=== PATIENT | male | born 1965 | race Caucasian/White ===

== ENCOUNTER 2017-03-01 16:00 | Inpatient (IN) | payer BC, OTHER ==
[~2017-03-01] VITALS: Ht 180.3 cm; Wt 127.0 kg
[2017-03-01] MEDS ORDERED: [UNRECOGNIZED DRUG - CODE] PO (17:18)
[2017-03-01] MEDS ORDERED: METO25TA56 PO (17:19)
[2017-03-01] MEDS ORDERED: HYDR25TA4 PO (17:20)
[2017-03-01] MEDS ORDERED: GLC/500 PO (17:21)
[2017-03-01] MEDS ORDERED: SITA100T3 PO (17:22)
[2017-03-01 17:39] LABS: BUN/CREATININE RATIO 15.2 (10-20); CALCIUM 8.7 mg/dl (8.5-10.1); CREATININE 0.93 mg/dl (0.60-1.40); POTASSIUM 3.5 mmol/L (3.5-5.1)
[2017-03-01 18:01] LABS: BETA-HYDROXYBUTYRATE 5.21 mg/dL (0.2-2.81)
--- NOTE | 2017-03-01 20:23 | DIAGNOSTIC IMAGING REPORT ---
CHEST ONE VIEW PORTABLE CLINICAL HISTORY: Fever, sepsis COMPARISON STUDY: No previous studies for comparison. FINDINGS: The heart is mildly enlarged. There is a suboptimal inspiration. There are increased bilateral perihilar markings. These are nonspecific and could be secondary to either a hypoventilatory study, mild pulmonary vascular congestion, or an interstitial inflammatory process. There are no pleural effusions. Clinical and radiographic follow-up is recommended.[ IMPRESSION: Nonspecific bilateral interstitial hilar opacities. Clinical and radiographic follow-up is recommended. Electronically signed by: Ignacio Montgomery M.D. 03/01/2017 8:22 PM Dictated Date/Time: 03/01/2017 8:19 PM
[2017-03-01 20:26] LABS: HEMATOCRIT 47.1 % (42-52); MEAN CELL VOLUME 88.5 fL (80-100); MEAN CORPUSCULAR HEMOGLOBIN 31.4 pg (25-34); MEAN CORPUSCULAR HGB CONC 35.5 g/dl (32-36); MEAN PLATELET VOLUME 10.3 fL (7.4-10.4); PLATELET COUNT 284 K/uL (130-400); RED BLOOD COUNT 5.32 M/uL (4.7-6.1); WHITE BLOOD COUNT 10.21 K/uL (4.8-10.8)
[2017-03-01] MEDS ORDERED: DILTIAZEM BOLUS / DRIP IV STA (20:43)
[2017-03-01 20:45] LABS: COMPLETE YES; EOSINOPHIL % 0.9 %; LYMPH ABS # 2.95 K/uL (1.2-3.4); LYMPHOCYTE % 28.9 %; NEUTROPHILS % 65.8 %
[2017-03-01] MEDS ORDERED: DILTIAZEM HCL 5 MG/ML 5 ML VIAL BOLUS/OMNI IV SCH (21:00)
[2017-03-01] MEDS ORDERED: DILTIAZEM HCL INJ 125 MG in DEXTROSE 5% 100ML IV PRN (21:00)
[2017-03-01 21:09] LABS: INR 0.9 (0.9-1.1); PROTHROMBIN TIME (PATIENT) 9.9 SECONDS (9.0-12.0)
[2017-03-01 21:41] LABS: ALKALINE PHOSPHATASE 27 U/L (45-117); ALT/SGPT 18 U/L (12-78); AST/SGOT 8 U/L (15-37); CKMB/CK RATIO 1.6 (0-3.0); THYROID STIMULATING HORMONE 0.462 uIu/ml (0.300-4.500)
[2017-03-01] MEDS ORDERED: METOPROLOL TARTRATE 50 MG TAB PO STA (22:08)
[2017-03-01] MEDS ORDERED: POTASSIUM CHLORIDE 10 MEQ TABCR PO STA (22:08)
[2017-03-01] MEDS ORDERED: MULTI-VITAMIN INFUSION INJ 10 ML, THIAMINE HCL INJ 100 MG, FoLIC ACID INJ 1 MG, POTASSI... IV ONE ×5 (22:30)
--- NOTE | 2017-03-01 22:31 | EMERGENCY ROOM VISIT NOTE ---
History Report prepared by Emyibsuly: Piotr Bolton Under the Supervision of: Dr. Dhruv Torres D.O. First contact with patient: 16:03 Chief Complaint: ALCOHOL OVERDOSE Stated Complaint: ETOH History of Present Illness The patient is a 51 year old male who presents to the Emergency Room with complaints of constant alcohol intoxication that started around 0930 this morning. The patient is accompanied by family who report that the patient has been drinking vodka since 0930. She reports that they are here for the game and are originally from [place]. Per EMS, the patient fell and they are unsure if the patient hit his head. He admits to a history of hypertension and hyperlipidemia. The patient denies vomiting. The HPI is limited due to the patient's condition. Source of History: patient, family, EMS Onset: 0930 Position: other (global) Quality: other (intoxication) Timing: constant Associated Symptoms: No vomiting Review of Systems The ROS is limited due to the patient's condition. Past Medical & Surgical Medical Problems: (1) Hyperlipidemia (2) Hypertension Family History Patient reports no known family medical history. Social History Alcohol Use: occasionally Marital Status: Housing Status: lives with family Occupation Status: employed Current/Historical Medications Scheduled Amlodipine Besylate-Olmesartan (Amlodipine/Olmesartan Med 10-40 mg), 1 TAB PO DAILY Hydrochlorothiazide (Hctz), 25 MG PO DAILY Metformin Hcl (Glucophage), 500 MG PO BID Metoprolol Tartrate (Lopressor) (Lopressor), 25 MG PO BID Sitagliptin Phosphate (Januvia), 100 MG PO DAILY Allergies Coded Allergies: No Known Allergies (Unverified , 03/01/17) Physical Exam Vital Signs Date Time Temp Pulse Resp B/P (MAP) Pulse Ox O2 Delivery O2 Flow Rate FiO2 03/01/17 22:01 110 18 104/68 95 Nasal Cannula 2.0 03/01/17 21:51 90 18 120/76 97 Nasal Cannula 2.0 03/01/17 21:41 99 18 124/75 96 Nasal Cannula 2.0 03/01/17 21:40 110 8 96 03/01/17 21:31 107/75 03/01/17 21:30 95 10 94 03/01/17 21:21 102/73 03/01/17 21:20 108 15 89 03/01/17 21:14 126 18 111/67 95 Nasal Cannula 2.0 03/01/17 21:11 104 18 113/93 95 Nasal Cannula 2.0 03/01/17 21:00 123 18 115/85 98 Nasal Cannula 2.0 03/01/17 20:30 114 18 101/75 95 Nasal Cannula 2.0 03/01/17 20:13 150 18 121/70 98 Nasal Cannula 2.0 03/01/17 20:00 110 18 98/68 95 Nasal Cannula 2.0 03/01/17 19:02 131 03/01/17 19:00 103 18 111/64 95 Nasal Cannula 2.0 03/01/17 18:39 79 109/72 95 Room Air 03/01/17 17:00 67 104/66 97 Nasal Cannula 2.0 03/01/17 16:20 87 03/01/17 16:18 93 Nasal Cannula 2.0 03/01/17 16:17 36.9 86 19 113/68 90 Room Air 03/01/17 16:12 91 Room Air Physical Exam CONSTITUTIONAL/VITAL SIGNS: Reviewed / noted above. GENERAL: Non-toxic in appearance. Somewhat drowsy. Unable to carry on a conversation. Answers basic questions appropriately. INTEGUMENTARY: Warm, dry, and [place]. HEAD: Normocephalic. EYES: without scleral icterus or trauma. ENT/OROPHARYNX: clear and moist. LYMPHADENOPATHY/NECK: Is supple without lymphadenopathy or meningismus. RESPIRATORY: Lungs clear and equal. CARDIOVASCULAR: Regular rate and rhythm. GI/ABDOMEN: Soft and nontender. No organomegaly or pulsatile mass. No rebound or guarding. Normal bowel sounds. EXTREMITIES: Warm and well perfused. BACK: No CVA tenderness. NEUROLOGICAL: Intact without focal deficits. PSYCHIATRIC: normal affect. MUSCULOSKELETAL: Normally developed with good muscle tone. Medical Decision & Procedures ER Provider Diagnostic Interpretation: X ray results and stated below per my interpretation and radiology interpretation. CHEST ONE VIEW PORTABLE CLINICAL HISTORY: Fever, sepsis COMPARISON STUDY: No previous studies for comparison. FINDINGS: The heart is mildly enlarged. There is a suboptimal inspiration. There are increased bilateral perihilar markings. These are nonspecific and could be secondary to either a hypoventilatory study, mild pulmonary vascular congestion, or an interstitial inflammatory process. There are no pleural effusions. Clinical and radiographic follow-up is recommended.[ IMPRESSION: Nonspecific bilateral interstitial hilar opacities. Clinical and radiographic follow-up is recommended. Electronically signed by: Ignacio Montgomery M.D. 03/01/2017 8:22 PM Dictated Date/Time: 03/01/2017 8:19 PM Laboratory Results 03/01/17 20:07 Red Blood Count 5.32, Mean Corpuscular Volume 88.5, Mean Corpuscular Hemoglobin 31.4, Mean Corpuscular Hemoglobin Concent 35.5, Mean Platelet Volume 10.3 03/01/17 16:17 Test 03/01/17 16:17 03/01/17 16:23 03/01/17 20:07 03/01/17 21:02 Anion Gap 17.0 mmol/L (3-11) Est Creatinine Clear Calc Drug Dose 133.1 ml/min Estimated GFR () 111.3 Estimated GFR (Non- 96.1 BUN/Creatinine Ratio 15.2 (10-20) Calcium Level 8.7 mg/dl (8.5-10.1) Beta-Hydroxybutyric Acid 5.21 mg/dL (0.2-2.81) Chemistry Specimen Hemolysis Ethyl Alcohol mg/dL 311.1 mg/dl (0-3) Prothrombin Time 9.9 SECONDS (9.0-12.0) Prothromb Time International Ratio 0.9 (0.9-1.1) Activated Partial Thromboplast Time 27.1 SECONDS (21.0-31.0) Partial Thromboplastin Ratio 1.0 White Blood Count 10.21 K/uL (4.8-10.8) Red Blood Count 5.32 M/uL (4.7-6.1) Hemoglobin 16.7 g/dL (14.0-18.0) Hematocrit 47.1 % (42-52) Mean Corpuscular Volume 88.5 fL (80-100) Mean Corpuscular Hemoglobin 31.4 pg (25-34) Mean Corpuscular Hemoglobin Concent 35.5 g/dl (32-36) Platelet Count 284 K/uL (130-400) Mean Platelet Volume 10.3 fL (7.4-10.4) RDW Standard Deviation 41.7 fL (36.4-46.3) RDW Coefficient of Variation 13.0 % (11.5-14.5) Neutrophils % (Manual) 65.8 % Lymphocytes % (Manual) 28.9 % Monocytes % (Manual) 4.4 % Eosinophils % (Manual) 0.9 % Neutrophils # (Manual) 6.72 K/uL (1.4-6.5) Total Absolute Neutrophils 6.72 K/uL (1.4-6.5) Lymphocytes # (Manual) 2.95 K/uL (1.2-3.4) Total Absolute Lymphocytes 2.95 K/uL (1.2-3.4) Monocytes # (Manual) 0.45 K/uL (0.11-0.59) Eosinophils # (Manual) 0.09 K/uL (0-0.5) Magnesium Level 1.0 mg/dl (1.8-2.4) Total Bilirubin 0.2 mg/dl (0.2-1) Direct Bilirubin < 0.1 mg/dl (0-0.2) Aspartate Amino Transf (AST/SGOT) 8 U/L (15-37) Alanine Aminotransferase (ALT/SGPT) 18 U/L (12-78) Alkaline Phosphatase 27 U/L (45-117) Total Creatine Kinase 74 U/L (39-308) Creatine Kinase MB 1.2 ng/ml (0.5-3.6) Creatine Kinase MB Ratio 1.6 (0-3.0) Troponin I 0.019 ng/ml (0-0.045) Pro-B-Type Natriuretic Peptide < 5 pg/ml (0-450) Total Protein 3.7 gm/dl (6.4-8.2) Albumin 1.8 gm/dl (3.4-5.0) Thyroid Stimulating Hormone (TSH) 0.462 uIu/ml (0.300-4.500) Laboratory results as stated above per my review. Medications Administered Medications (Trade) Dose Ordered Sig/Richie Route Start Time Stop Time Status Last Admin Dose Admin Diltiazem HCl (Cardizem Inj) 20 mg TODAY@2100 IV 03/01/17 21:00 03/01/17 23:59 03/01/17 21:13 20 MG Diltiazem HCl 125 mg/Dextrose 125 ml @ 0 mls/hr Q0M PRN IV 03/01/17 21:00 03/31/17 20:59 03/01/17 21:15 10 MLS/HR ECG Indication: altered mental status Rate (beats per minute): 106 Rhythm: atrial fibrillation (RVR) Findings: T-wave inversion (Anterior), no ectopy ED Course 160: Previous medical records were reviewed. The patient was evaluated in room B04B. A complete history and physical examination was performed. 2042: Ordered Diltiazem HCl 1 each IV. 2099: Ordered Diltiazem HCl 125 mg/Dextrose 125 @ 0 mls/hr IV, Cardizem Injection 20 mg IV. 2144: I discussed the patients case with Joel Zamora. He understands the patients condition and agrees to accept. The patient will be further evaluated. 2149: I reevaluated the patient and discussed his results. I also discussed his treatment plan, which he agrees to. The patient will be further evaluated. Medical Decision There is no evidence of other toxic ingestions, trauma, anemia, hypoglycemia, head injury or intracranial pathology, meningitis, encephalitis, acute intrathoracic or abdominal pathology or other metabolic condition. This is a 51-year-old male who presents to the ED with a chief complaint of alcohol intoxication. He was brought in by his daughter because he had fallen and they were unable to get him up. He does admit to drinking alcohol heavily today. At first he was having some difficulty communicating and answering questions but this improved during his stay. While he was here, he was placed on a monitor. He was initially a sinus rhythm but spontaneously converted into atrial fibrillation with RVR. An EKG showed A. fib with RVR with some T-wave inversions inferiorly. Chest x-ray was negative for acute disease. CBC was unremarkable. Troponin was negative. TSH was normal. The patient was started on IV fluids and then a IV Cardizem drip after a bolus for heart rate control. He was monitored closely here. He was convinced that he should stay for further inpatient evaluation and care. The patient will be seen by the hospitalist for further evaluation. Medication Reconcilliation Current Medication List: was personally reviewed by me Blood Pressure Screening Patient's blood pressure: Normal blood pressure Consults Time Called: 2144 Consulting Physician: Joel Zamora Returned Call: [phone]: I discussed the patients case with Joel Zamora. He understands the patients condition and agrees to accept. The patient will be further evaluated. Impression Primary Impression: Alcohol use with intoxication Additional Impression: Atrial fibrillation with RVR Critical Care I have personally spent 30 minutes of critical care time in the direct management of this patient. This includes bedside care, interpretation of diagnostic studies, and testing, discussion with consultants, patient, and family members, and other required patient management activities. Scribe Attestation The scribe's documentation has been prepared under my direction and personally reviewed by me in its entirety. I confirm that the note above accurately reflects all work, treatment, procedures, and medical decision making performed by me. Departure Information Dispostion Being Evaluated By Hospitalist Patient Instructions My [facility] Problem Qualifiers
[2017-03-01] MEDS ORDERED: METOPROLOL TARTRATE 25 MG TAB PO STA (22:40)
[2017-03-01] MEDS ORDERED: INSULIN GLARGINE SOLOSTAR 100 UNITS/ML 3 ML PEN SC STA (22:51)
[2017-03-01] MEDS ORDERED: INSULIN ASPART 100 UNITS/ML 3 ML PEN SC STA (22:51)
[2017-03-01] MEDS ORDERED: GLUCOSE 40% GEL 15 GM TUBE PO PRN (23:00)
[2017-03-01] MEDS ORDERED: GLUCOSE 10 TABS/TUBE PO PRN (23:00)
[2017-03-01] MEDS ORDERED: DEXTROSE 50% 50 ML SYR IV PRN (23:00)
[2017-03-01] MEDS ORDERED: GLUCAGON FOR INJ 1 MG VIAL SQ PRN (23:00)
[2017-03-01] MEDS ORDERED: NITROGLYCERIN 0.4 MG SL PER TAB CHARGE SL PRN (23:15)
[2017-03-01] MEDS ORDERED: DILTIAZEM HCL INJ 125 MG in DEXTROSE 5% 100ML 100 ML IV PRN (23:15)
[2017-03-01] MEDS ORDERED: LORAZEPAM 2 MG/ML 1 ML VIAL IV PRN (23:15)
[2017-03-01] MEDS ORDERED: ACETAMINOPHEN 325 MG TAB PO PRN (23:15)
[2017-03-01] MEDS ORDERED: OXYCODONE/ACETAMINOPHEN 5-325 TAB PO PRN (23:15)
[2017-03-01] MEDS ORDERED: ONDANSETRON INJ 2 MG/ML 2 ML VIAL IV PRN (23:15)
[2017-03-01 23:38] VITALS: BP 113/72; PULSE 76; TEMP 36.9; O2SAT 95; Ht 180.3 cm; Wt 127.0 kg
[2017-03-02] MEDS ORDERED: ENOXAPARIN 40 MG/0.4 ML SYR SC SCH
[2017-03-02] MEDS: MAGNESIUM SULFATE 1GM / D5W 1 GM in PREMIXED IN D5W 100 ML IV SCH ×4 (00:43→03:17)
[2017-03-02] MEDS ORDERED: NSS + 20MEQ KCL 1000ML 1,000 ML IV ONE (03:00)
[2017-03-02 04:24] LABS: BASO % 0.1 %; BASO ABS # 0.01 K/uL (0-0.2); COMPLETE YES; EOS % 0.9 %; HEMATOCRIT 41.2 % (42-52); IG% 0.4 %; LYMPH ABS # 3.45 K/uL (1.2-3.4); MEAN CELL VOLUME 88.6 fL (80-100); MEAN CORPUSCULAR HEMOGLOBIN 31.2 pg (25-34); MEAN CORPUSCULAR HGB CONC 35.2 g/dl (32-36); MEAN PLATELET VOLUME 10.1 fL (7.4-10.4); MONO % 7.3 %; NEUT % 55.3 %; PLATELET COUNT 280 K/uL (130-400); RED BLOOD COUNT 4.65 M/uL (4.7-6.1); WHITE BLOOD COUNT 9.59 K/uL (4.8-10.8)
[2017-03-02 04:45] LABS: BUN/CREATININE RATIO 11.2 (10-20); CALCIUM 8.3 mg/dl (8.5-10.1); CARBON DIOXIDE 23 mmol/L (21-32); CHLORIDE 104 mmol/L (98-107); CREATININE 0.83 mg/dl (0.60-1.40); GLUCOSE 254 mg/dl (70-99); MAGNESIUM 2.6 mg/dl (1.8-2.4); POTASSIUM 3.9 mmol/L (3.5-5.1); SODIUM 138 mmol/L (136-145)
[2017-03-02 05:03] LABS: BLOOD UREA NITROGEN 9 mg/dl (7-18)
[2017-03-02 06:46] LABS: URINE APPEARANCE CLEAR (CLEAR); URINE BILIRUBIN NEG (NEG); URINE COLOR YELLOW; URINE NITRITE NEG (NEG); URINE SPECIFIC GRAVITY 1.027 (1.000-1.030); UROBILINOGEN NEG (NEG); ZZUR CULT IF INDIC CLEAN CATCH NO
[2017-03-02 06:55] LABS: MANUAL MICROSCOPIC REQUIRED? NO; REVIEW REQ? NO
[2017-03-02] MEDS ORDERED: INSULIN ASPART 100 UNITS/ML 3 ML PEN SC SCH (07:00)
--- NOTE | 2017-03-02 07:21 | HISTORY & PHYSICAL EXAMINATION ---
DATE OF ADMISSION: 03/01/2017 PRIMARY CARE DOCTOR: Dr. Esquivel from [place], [place]. CHIEF COMPLAINT: Syncope. HISTORY OF PRESENT ILLNESS: History obtained from the patient, daughter and ER physician. Medical history significant for PAF, hypertension, DM2 on oral meds. LEROY on CPAP. Patient visiting town for the football game. While tailgating, patient slipped into mud subsequently falling down and possibly passing out. Patient was found lying down supine on the ground by daughter just staring into space. Ten people tried to get the patient up. Patient brought to the Emergency Room. He has no recollection of events from falling on the ground up to waking up in the Emergency Room. As per patient, he has passed out before from alcohol intake. Patient does not recall any head trauma. Patient denies headache. No incontinence, no tongue biting. Patient denies chest pain, shortness of breath. At the Emergency Room, patient noted to be in rapid Afib. Heart rate in the 150s. Cardizem bolus and drip initiated in the Emergency Room. Patient initially wanted to sign out AGAINST MEDICAL ADVICE but later on relented to his daughter's request to stay. "Afib" on and off discovered about 20 years ago as per patient. He was on aspirin which he stopped years ago by himself. No bleeding. He claims to be compliant with home medications. MEDICAL HISTORY: As above. SURGERIES: R Hip surgery. HOME MEDICATIONS: Include amlodipine, olmesartan, HCTZ, Glucophage, Lopressor, Januvia. ALLERGIES: No known drug allergies. FAMILY HISTORY: Heart disease. PERSONAL AND SOCIAL HISTORY: Nonsmoker. Occasional alcoholic beverage consumption on the weekend - denies abuse and daughter corroborates this. Involved w office logistics work. REVIEW OF SYSTEMS: As per HPI, all ten systems reviewed, all other ROS negative. PHYSICAL EXAMINATION: VITAL SIGNS: Blood pressure was noted to be 113/98, pulse rate 130, later 110, RR 15, temperature 36.9, sats 95 on room air. O2 sats 95 on room air. GENERAL: Noted to be obese, slightly anxious, no respiratory distress. SKIN: Normal color, warm. HEENT: Alopecia. [place] palpebral conjuctivae. Dry buccal mucosa. No ptosis. NECK: Short, supple. CHEST: Clear to auscultation. No tenderness. CV: Irregular, palpable LE pulses. ABDOMEN: Soft, some distension, nontender. EXTREMITIES: No edema, no tenderness. No gross deformities. NEUROLOGIC: Coherent . No gross focality. LABS: Hemoglobin noted to be 16.7, hematocrit 47, white cells 10.21, platelets 284. Sodium 130, potassium 3.5, chloride noted to be 95, CO2 20, BUN 40, creatinine 0.9, anion gap was 17, glucose 343. Serum ketones noted. Mag was 1. Alcohol level was 311. BNP was normal. Chest x-ray, some congestion EKG as per my interpretation, rate 105, Afib, diffuse T-wave inversion ASSESSMENT AND PLAN: 1. Recurrent atrial fibrillation. Rate uncontrolled. possible precipitants : clinical dehydration 2 to mild diabetic ketoacidosis missed nighttime beta michelle Alcohol intake 2. Fall, possible syncope, possible concussion (patient has no recollection of events following fall until arrival at the ER) likely secondary to alcoholic intoxication, possible orthostasis rule out structural intracranial pathology Patient currently neurologically intact. 3. Hypertension, blood pressure on the lower side. 4. DM2 on oral meds. mild DKA on admission blood work unknown baseline control. 5. Sleep apnea on CPAP. PCU. Facilitate home beta michelle, wean off Cardizem drip Continue IV fluids. Replace electrolytes. neuro checks, CT head RE possible concussion. (Patient refusing CT of the head to rule out intracranial trauma resulting from fall.) Patient also refusing 2D echo (to check for cardiac thrombus in the setting of recurrent AF of unknown duration) and IV anticoagulation (for thromboprophylaxis for AF). Patient was counselled on the risks of missing intracranial injury and potential stroke with refusal to undergo recommended imaging/intervention. Patient's daughter at bedside during discussion. basal insulin, ISS BG goal 140-180 Check hemoglobin A1c. DVT prophylaxis RE SCDs for now (RE possible intracranial trauma, possible concussion - Px refusing head imaging to ascertain concern following unwitnessed fall/syncopal event.) Full code. Patient requesting to be discharged in AM once heartbeat controlled. Patient's daughter requesting for updates from providers. Miss Shala Moore at [phone] [facility]
[2017-03-02 07:26] LABS: BENZODIAZEPINE, URINE NEG (NEG); COCAINE,URINE NEG (NEG); PHENCYCLIDINE, URINE NEG (NEG)
[2017-03-02 08:02] VITALS: BP_SYST 149; BP_SYST 159; BP_SYST 160; BP_DIAS 89; BP_DIAS 95; PULSE 80; PULSE 82; PULSE 89; TEMP 36.8; O2SAT 95
[2017-03-02] MEDS ORDERED: METOPROLOL TARTRATE 25 MG TAB PO SCH (09:00)
[2017-03-02] MEDS ORDERED: INSULIN GLARGINE SOLOSTAR 100 UNITS/ML 3 ML PEN SC SCH (09:00)
[2017-03-02] MEDS ORDERED: AMLODIPINE BESYLATE 5 MG TAB PO SCH ×2 (09:00)
[2017-03-02] MEDS ORDERED: OLMESARTAN MEDOXOMIL 40 MG TAB PO SCH ×2 (09:00)
--- NOTE | 2017-03-02 10:07 | Discharge Instructions ---
Discharge Instructions Date of Service Mar 02, 2017. Admission Reason for Admission: Atrial Fibrillation With Rvr Discharge Discharge Diagnosis / Problem: Atrial fibrillation with RVR, alcohol intoxication Discharge Goals Goal(s): Prevent Disease Progression Activity Recommendations Activity Limitations: per Instructions/Follow-up section . Instructions / Follow-Up Instructions / Follow-Up No changes were made to your home medications. The rhythm you presented in was called atrial fibrillation and this rhythm comes along with a stroke risk. It may be appropriate to go on blood thinners moving forward. This should be addressed with your value advisor. It is strongly recommended that you cut back on your alcohol intake. Please follow-up with your primary care physician within one week of discharge. Please follow-up with your value advisor as soon as you are able to discuss the abnormal heart rhythm. It was a pleasure taking care of you! Call if you have any questions or problems. You can reach a [facility]ist on duty at [facility] 24 hours a day by calling [phone]. Take care of yourself. Rachel Alanis DO [facility] Diet Patient's current hospital diet: Diabetes Type 2 Diet, AHA Diet (Heart Healthy) Discharge Diet Recommended Diet: AHA Diet (Heart Healthy), Diabetes Type 2 Diet Procedures Procedures Performed: None. Pending Studies Studies pending at discharge: no Laboratory Results Hemoglobin A1c Test 03/01/17 23:08 Range/Units Medical Emergencies . Who to Call and When: Medical Emergencies: If at any time you feel your situation is an emergency, please call 911 immediately. . Non-Emergent Contact Non-Emergency issues call your: Primary Care Provider . . "Provider Documentation" section prepared by Rachel Alanis. . VTE Core Measure Inpt VTE Proph given/why not?: Enoxaparin (Lovenox)SQ
[2017-03-02 10:33] VITALS: BP 159/95; PULSE 89; TEMP 36.8; O2SAT 95
[2017-03-03 08:33] LABS: ESTIMATED AVERAGE GLUCOSE 226 mg/dl; HA1C FLAG Normal (Normal)
--- NOTE | 2017-03-03 09:32 | Discharge Summary ---
Discharge Summary Date of Service Mar 02, 2017. Discharge Summary Admission Date: Mar 01, 2017 at 22:41 Discharge Date: Mar 02, 2017 Discharge Disposition: Home Principal Diagnosis: Atrial fibrillation with RVR 2/2 alcohol intoxication h/o PAF-not on anticoagulation DMII Hypomagnesemia-replaced HTN Procedures: None. Vaccinations: None. Consultations: None. Pending Studies/Follow-Up: see instructions below. Medication Reconciliation Continued Medications: Amlodipine Besylate-Olmesartan (Amlodipine/Olmesartan Med 10-40 mg) 1 Tab Tab 1 TAB PO DAILY Hydrochlorothiazide (Hctz) 25 Mg Tab 25 MG PO DAILY, TAB Metformin Hcl (Glucophage) 500 Mg Tab 500 MG PO BID, TAB Metoprolol Tartrate (Lopressor) (Lopressor) 25 Mg Tab 25 MG PO BID, TAB Sitagliptin Phosphate (Januvia) 100 Mg Tab 100 MG PO DAILY, TAB Admission Information HPI (per Admitting provider): HISTORY OF PRESENT ILLNESS: History obtained from the patient, daughter and ER physician. Medical history significant for PAF, hypertension, DM2 on oral meds. LEROY on CPAP. Patient visiting town for the football game. While tailgating, patient slipped into mud subsequently falling down and possibly passing out. Patient was found lying down supine on the ground by daughter just staring into space. Ten people tried to get the patient up. Patient brought to the Emergency Room. He has no recollection of events from falling on the ground up to waking up in the Emergency Room. As per patient, he has passed out before from alcohol intake. Patient does not recall any head trauma. Patient denies headache. No incontinence, no tongue biting. Patient denies chest pain, shortness of breath. At the Emergency Room, patient noted to be in rapid Afib. Heart rate in the 150s. Cardizem bolus and drip initiated in the Emergency Room. Patient initially wanted to sign out AGAINST MEDICAL ADVICE but later on relented to his daughter's request to stay. "Afib" on and off discovered about 20 years ago as per patient. He was on aspirin which he stopped years ago by himself. No bleeding. He claims to be compliant with home medications. Physical Exam (per Admitting): PHYSICAL EXAMINATION: VITAL SIGNS: Blood pressure was noted to be 113/98, pulse rate 130, later 110, RR 15, temperature 36.9, sats 95 on room air. O2 sats 95 on room air. GENERAL: Noted to be obese, slightly anxious, no respiratory distress. SKIN: Normal color, warm. HEENT: Alopecia. [place] palpebral conjuctivae. Dry buccal mucosa. No ptosis. NECK: Short, supple. CHEST: Clear to auscultation. No tenderness. CV: Irregular, palpable LE pulses. ABDOMEN: Soft, some distension, nontender. EXTREMITIES: No edema, no tenderness. No gross deformities. NEUROLOGIC: Coherent . No gross focality. Hospital Course 51 yo diabetic M with known history of paroxysmal atrial fibrillation was picked up by EMS intoxicated with alcohol laying in the mud at a visiting football game. Family alerted EMS and when they arrived he was nonverbal but was responsive with normal vital signs and a FSG of 334. Per family he had 12 drinks prior to this but never hit his head or lost consciousness. In the ER, he was awake and answering basic questions appropriately after some time. On the monitor he was initially in sinus rhythm but spontaneously converted into atrial fibrillation with RVR with a rate of 150. An EKG revealed afib w RVR with inferior T wave inversions. Chest x-ray was negative for acute disease. A CBC was unremarkable. Troponin was negative, TSH was normal. He was started on IV fluids and then an IV Cardizem drip after a bolus for heart rate control. He was admitted to telemetry and monitored overnight. Serial cardiac enzymes were drawn and negative. He converted to sinus rhythm overnight on telemetry. Lab work revealed an AG of 17 with presence of serum ketones and he was given insulin bringing his blood sugar down to the low 200s. He had recently been started on metformin and Januvia by his PCP in the last two months. Of note, he had missed his nighttime beta michelle, appeared to have clinical dehydration 2/2 mild DKA and had significant amounts of alcohol all contributing to his arrhythmia episode. The following morning, he was tolerating PO, mentating and ambulating at baseline, in sinus rhythm with no symptoms, and was asking to return home declining further testing or workup (CT head, ECHO). He refused anticoagulation saying that he had discussed this with his Equipment Operation Instructor and for him it was not recommended at this time. He was eager to get back to his PCP and Equipment Operation Instructor who know his history. The case was briefly discussed with the Equipment Operation Instructor director of graduate admissions who felt it was safe to send him home. He was sent home in stable condition with no changes in his medications. Total time spent on discharge = 60 minutes This includes examination of the patient, discharge planning, medication reconciliation, and communication with other providers. Discharge Instructions [facility] [address] [place] [address] Discharge Medical Patient Name: Dario Moore Unit Number: [id number] Date of : 1965 Patient Status: Admitted Inpatient Attending Doctor: Rachel Alanis DO DI: Medical v4 Discharge Instructions Date of Service Mar 02, 2017. Admission Reason for Admission: Atrial Fibrillation With Rvr Discharge Discharge Diagnosis / Problem: Atrial fibrillation with RVR, alcohol intoxication Discharge Goals Goal(s): Prevent Disease Progression Activity Recommendations Activity Limitations: per Instructions/Follow-up section . Instructions / Follow-Up Instructions / Follow-Up No changes were made to your home medications. The rhythm you presented in was called atrial fibrillation and this rhythm comes along with a stroke risk. It may be appropriate to go on blood thinners moving forward. This should be addressed with your bid clerk. It is strongly recommended that you cut back on your alcohol intake. Please follow-up with your primary care physician within one week of discharge. Please follow-up with your bid clerk as soon as you are able to discuss the abnormal heart rhythm. It was a pleasure taking care of you! Call if you have any questions or problems. You can reach a [facility] hospitalist on duty at [facility] 24 hours a day by calling [phone]. Take care of yourself. Rachel Alanis DO [facility] Hospitalist Current Hospital Diet Patient's current hospital diet: Diabetes Type 2 Diet, AHA Diet (Heart Healthy) Discharge Diet Recommended Diet: AHA Diet (Heart Healthy), Diabetes Type 2 Diet Procedures Procedures Performed: None. Pending Studies Studies pending at discharge: no Laboratory Results Hemoglobin A1c Test 03/01/17 23:08 Range/Units Medical Emergencies . Who to Call and When: Medical Emergencies: If at any time you feel your situation is an emergency, please call 911 immediately. . Non-Emergent Contact Non-Emergency issues call your: Primary Care Provider . . "Provider Documentation" section prepared by Rachel Alanis. . VTE Core Measure Inpt VTE Proph given/why not?: Enoxaparin (Lovenox)SQ Additional Copies To Hussain Esquivel, DO
== END 2017-03-02 11:34 | disposition home or self-care (01) | DRG 896 ==
LOC: C.EDB 16:09 → C.2T 22:41 → ENRESERV 23:00
PROVIDERS: ADMIT Internal Medicine; ATTEND Hospitalist
DX: F10.129 Alcohol abuse with intoxication, unspecified (principal); E11.10 Type 2 diabetes mellitus with ketoacidosis without coma; I48.0 Paroxysmal atrial fibrillation; S06.0X0A Concussion without loss of consciousness, initial encounter; R55 Syncope and collapse; W19.XXXA Unspecified fall, initial encounter; E83.42 Hypomagnesemia; I10 Essential (primary) hypertension; G47.33 Obstructive sleep apnea (adult) (pediatric); Z79.84 Long term (current) use of oral hypoglycemic drugs; Z79.899 Other long term (current) drug therapy; Z82.49 Family history of ischemic heart disease and other diseases of the circulatory system